=== PATIENT | female | born 2005 | race African-American/Black ===

== ENCOUNTER 2024-04-03 13:33 | Emergency (ER) | payer SELFPAY ==
[2024-04-03 13:47] VITALS: BP 123/71; PULSE 75; RESP 16; TEMP 36.4; O2SAT 100
--- NOTE | 2024-04-03 14:22 | ED.FEMALEGU ---
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 requesting a test. Patient reports her menstrual period was a week late. Currently has light bleeding. Patient denies any other questions or concerns Reports to at test were negative Related Data Home Medications ?Medication ?Instructions ?Recorded ?Confirmed ?Last Taken ?Type No Home Medications 04/03/24 Unknown History Allergies Allergy/AdvReac Type Severity Reaction Status Date / Time No Known Allergies Allergy Verified 04/03/24 13:45 Review of Systems Review of Systems: All systems reviewed & are unremarkable except as noted in HPI and below Constitutional: Constitutional: Reports no additional constitutional complaints ENT: Reports system reviewed and no additional complaints, except as documented Cardiovascular: Cardiovascular: Reports no additional cardiovascular complaints, Denies chest pain and Denies dyspnea Respiratory: Respiratory: Reports no additional respiratory complaints, Denies chest congestion, Denies cough and Denies dyspnea Genitourinary: Genitourinary: Reports as per HPI Musculoskeletal: Musculoskeletal: Reports no additional musculoskeletal complaints Integumentary/Breasts: Skin/Breast: Reports system reviewed and no additional complaints, except as docu PMFSH Comments At the time of my signature, I reviewed and agree with the nursing past medical, surgical, social, and family history. There is no relevant family history pertinent to the patient complaint. Exam Const: General: cooperative, healthy appearing, comfortable, no acute distress, well developed, alert and well nourished Nutritional Appearance: well nourished and obese Orientation/consciousness: patient oriented x3 Limitations: no limitations HENMT: Head: normal to inspection Eyes: General: appearance normal, both eyes and all related structures Alignment and Position: alignment normal Neck: Neck: normal visual inspection, full ROM, no lymphadenopathy and no meningeal signs Chest: Chest palpation & inspection: normal inspection of the chest Resp: Effort & Inspection: normal respiratory effort and able to speak in complete sentences Cardio: Rate: regular rate Skin: General skin exam: normal color and no rashes or lesions noted Neuro: General: patient oriented x3, gait normal, moves all extremities and no meningeal signs Cognition (Neuro): normal cognition Speech: normal speech Gait exam (Neuro): Normal gait present Extrem: General: normal to inspection, full ROM, capillary refill normal and normal gait Psych: Appearance: grossly normal and well kempt Mental Status: mental status grossly normal Speech and movement: Normal speech and movement present and Clear speech present Affect: normal affect Attitude: cooperative Course Course Level of Care: Express Care Visit Vital Signs Vital signs: Vital Signs Temperature 97.6 F 04/03/24 13:47 Pulse Rate 75 04/03/24 13:47 Respiratory Rate 16 04/03/24 13:47 Blood Pressure 123/71 04/03/24 13:47 Pulse Oximetry 100 04/03/24 13:47 Oxygen Delivery Room Air 04/03/24 13:47 Temperature 97.6 F 04/03/24 13:47 Pulse Rate 75 04/03/24 13:47 Respiratory Rate 16 04/03/24 13:47 Blood Pressure 123/71 04/03/24 13:47 Pulse Oximetry 100 04/03/24 13:47 Oxygen Delivery Room Air 04/03/24 13:47 Reviewed MDM - Female Genitourinary MDM Narrative Medical decision making narrative: Patient sitting. Nontoxic vitals stable. Patient in no acute distress. Patient presents requesting a test with no other concerns. Urine test negative Provided a list for [facility] Patient appropriate for outpatient treatment and follow-up Discharge instructions reviewed with patient, as well as provided in writing per nursing staff. The instructions also include specific and strict return/GO TO THE ER as well as f/u information. All questions have been answered, and the patient deny any further questions with discharge and discharge plan. Some parts of this dictation were generated by voice recognition software and may contain typographical and/or grammatical inaccuracies. Differential Diagnosis Differential diagnosis: Likely dysmenorrhea and other Critical Care Time Critical Care Time Critical Care Time: No Discharge Plan Discharge Clinical Impression: Urine test negative, Abnormal menses Patient Disposition: Home, Self-Care Condition: Stable Instructions: Safe Sex Practices (ED) Additional Instructions: Follow-up with primary care provider or travel accommodations rater provider, a list of providers has been given to you. Your urine test in clinic was negative. Patient Language: Latvian Prescriptions: No Action No Home Medications Follow-up/Referrals: PHYSICIAN,CEMENT GRINDING M[employer] OPERATOR [Primary Care Provider] - Stand Alone Forms: Work/School Release IP Time of Disposition: 14:27
[2024-04-03 14:32] LABS: BEDSIDEPREGUCG Negative (Negative)
== END 2024-04-03 14:35 | disposition home or self-care (01) ==
PROVIDERS: Emergency Provider Nurse Practitioner
DX: Z32.01 Encounter for pregnancy test, result positive (principal); N92.6 Irregular menstruation, unspecified
CPT/HCPCS: 81025; 99212; G0463